=== PATIENT | female | born 1985 | race Two or more races ===

== ENCOUNTER 2016-06-18 17:33 | Emergency (ER) | payer OTHER ==
[2016-06-18 18:03] LABS: PH,URINE 8.5 (4.5-8); URINE APPEARANCE Clear; URINE BILIRUBIN Negative (NEGATIVE); URINE BLOOD Negative (NEGATIVE); URINE COLOR YELLOW; URINE GLUCOSE (UA) Negative (NEGATIVE); URINE KETONE Trace (NEGATIVE); URINE LEUK ESTERASE Negative (NEGATIVE); URINE NITRITE Negative (NEGATIVE); URINE PROTEIN Negative (NEGATIVE); URINE UROBILINOGEN 0.2 E.U/dl (0.2-1.0)
[2016-06-18 18:08] VITALS: BP 109/65; PULSE 89; TEMP 98.7; BMI 47.5
--- NOTE | 2016-06-18 18:42 | PDOC ---
History of Present Illness - General History Source: Patient Exam Limitations: No Limitations - History of Present Illness Initial Comments: 06/18/16 18:46 The patient is a 31 year old female, with a significant past medical history of asthma, GERD and anxiety, who presents to the emergency department with abdominal pain. She describes her abdominal pain as ranging from mild to moderate, without radiation or modifying factors. She notes that the pain is localized in the suprapubic region where her is localized. She reports that she is currently attempting to get , with her last menstrual period being 2 weeks ago. The patient denies chest pain, shortness of breath, headache and dizziness. Denies fever, chills, nausea, vomit, diarrhea and constipation. Denies dysuria, frequency, urgency and hematuria. Allergies: Sulfa, morphine Past surgical history: (2009) Social history: Cigarette use (20 daily). No alcohol or drug use reported <James Lund - Last Filed: 06/18/16 18:46> <Amador Harrell - Last Filed: 06/19/16 11:18> - General Chief Complaint: Pain, Acute Stated Complaint: PELVIC PAIN Time Seen by Provider: 06/18/16 18:42 Past History <James Lund - Last Filed: 06/18/16 18:46> - Past Medical History Asthma: Yes GI Disorders: Yes (GERD) Psychiatric Problems: Yes (anxiety) Other medical history: pcos - Reproductive History Polycystic Ovaries: Yes (PERIOD USUALLY ONCE A YEAR) - Immunization History Immunization Up to Date: Yes - Psycho/Social/Smoking Cessation Hx Anxiety: No Suicidal Ideation: No Smoking Status: Yes Smoking History: Current every day smoker Have you smoked in the past 12 months: Yes Number of Cigarettes Smoked Daily: 8 Information on smoking cessation initiated: Yes 'Breaking Loose' booklet given: 06/18/16 Hx Alcohol Use: No Drug/Substance Use Hx: No Substance Use Type: None <Amador Harrell - Last Filed: 06/19/16 11:18> - Past Medical History Allergies/Adverse Reactions: Allergies Allergy/AdvReac Type Severity Reaction Status Date / Time Sulfa (Sulfonamide Allergy UNKNOWN Verified 06/18/16 17:34 Antibiotics) morphine AdvReac Verified 06/18/16 17:34 Home Medications: Ambulatory Orders NK [No Known Home Medication] 10/07/15 Review of Systems - Review of Systems Able to Perform ROS?: Yes Comments:: 06/18/16 18:46 GENERAL/CONSTITUTIONAL: No fever or chills. No weakness. HEAD, EYES, EARS, NOSE AND THROAT: No change in vision. No ear pain or discharge. No sore throat. CARDIOVASCULAR: No chest pain or shortness of breath RESPIRATORY: No cough, wheezing, or hemoptysis. GASTROINTESTINAL: +Abdominal pain. No nausea, vomiting, diarrhea or constipation. GENITOURINARY: No dysuria, frequency, or change in urination. MUSCULOSKELETAL: No joint or muscle swelling or pain. No neck or back pain. SKIN: No rash NEUROLOGIC: No headache, vertigo, loss of consciousness, or change in strength/ sensation. ENDOCRINE: No increased thirst. No abnormal weight change HEMATOLOGIC/LYMPHATIC: No anemia, easy bleeding, or history of blood clots. ALLERGIC/IMMUNOLOGIC: No hives or skin allergy. <James Lund - Last Filed: 06/18/16 18:46> *Physical Exam - Vital Signs Last Vital Signs Temp Pulse Resp BP Pulse Ox 98.7 F 89 18 109/65 100 06/18/16 17:34 06/18/16 17:34 06/18/16 17:34 06/18/16 17:34 06/18/16 17:34 - Physical Exam Comments: 06/18/16 18:47 GENERAL: Awake, alert, and fully oriented, in no acute distress HEAD: No signs of trauma, normocephalic, atraumatic EYES: PERRLA, EOMI, sclera anicteric, conjunctiva clear ENT: Auricles normal inspection, hearing grossly normal, nares patent, oropharynx clear without exudates. Moist mucosa NECK: Normal ROM, supple, no lymphadenopathy, JVD, or masses LUNGS: No distress, speaks full sentences, clear to auscultation bilaterally HEART: Regular rate and rhythm, normal S1 and S2, no murmurs, rubs or gallops, peripheral pulses normal and equal bilaterally. ABDOMEN: +Diffused suprapubic tenderness. Soft, normoactive bowel sounds. No guarding, no rebound. No masses EXTREMITIES: Normal inspection, Normal range of motion, no edema. No clubbing or cyanosis. NEUROLOGICAL: Cranial nerves II through XII grossly intact. Normal speech, normal gait, no focal sensorimotor deficits SKIN: Warm, Dry, normal turgor, no rashes or lesions noted. PELVIC EXAM: +Bilateral adnexal tenderness and cervical tenderness. No vaginal discharge or blood in vault. <James Lund - Last Filed: 06/18/16 18:46> - Vital Signs Last Vital Signs Temp Pulse Resp BP Pulse Ox 98.7 F 89 18 109/65 100 06/18/16 17:34 06/18/16 17:34 06/18/16 17:34 06/18/16 17:34 06/18/16 17:34 <Amador Harrell - Last Filed: 06/19/16 11:18> ED Treatment Course - ADDITIONAL ORDERS Additional order review: Laboratory Results 06/18/16 17:45 Urine Color Yellow Urine Appearance Clear Urine pH 8.5 H Ur Specific [place] 1.020 Urine Protein Negative Urine Glucose (UA) Negative Urine Ketones Trace Urine Blood Negative Urine Nitrite Negative Urine Bilirubin Negative Urine Urobilinogen 0.2 e.u/dl Ur Leukocyte Esterase Negative Urine HCG, Qual Negative <James Lund - Last Filed: 06/18/16 18:46> - LABORATORY CBC & Chemistry Diagram: 06/18/16 19:10 06/18/16 19:10 - ADDITIONAL ORDERS Additional order review: Laboratory Results 06/18/16 17:45 Urine Color Yellow Urine Appearance Clear Urine pH 8.5 H Ur Specific [place] 1.020 Urine Protein Negative Urine Glucose (UA) Negative Urine Ketones Trace Urine Blood Negative Urine Nitrite Negative Urine Bilirubin Negative Urine Urobilinogen 0.2 e.u/dl Ur Leukocyte Esterase Negative Urine HCG, Qual Negative <Amador Harrell - Last Filed: 06/19/16 11:18> *DC/Admit/Observation/Transfer - Attestations Scribe Attestion: 06/18/16 18:47 Documentation prepared by James Lund, acting as certified ophthalmic medical technician for Amador Harrell MD <James Lund - Last Filed: 06/18/16 18:46> - Discharge Dispostion Admit: No <Amador Harrell - Last Filed: 06/19/16 11:18> Diagnosis at time of Disposition: Pelvic pain - Discharge Dispostion Disposition: HOME Condition at time of disposition: Stable - Referrals Referrals: Mateus Ortega [Primary Care Provider] - Call tomorrow - Patient Instructions Additional Instructions: PLENTY OF FLUIDS TELL YOUR DOCTOR ABOUT ALL MEDICATIONS YOU ARE TAKING RETURN IF WORSENING OR NEW SYMPTOMS IBUPROFEN FOR PAIN
[2016-06-18 19:23] LABS: BASOPHIL 0.1 % (0-2.0); EOSINOPHIL 3.7 % (0-4.5); MCH 28.6 pg (25.7-33.7); MCHC 32.4 g/dl (32.0-36.0); MEAN CELL VOLUME 88.1 fl (80-96); MEAN PLT VOLUME 9.2 fl (7.5-11.1); NEUTROPHILS 56.3 % (42.8-82.8); PLATELET COUNT 300 K/MM3 (134-434); RDW 12.2 % (11.6-15.6)
[2016-06-18 19:36] LABS: ALBUMIN 3.7 g/dl (3.5-5.0); ALK PHOS 63 U/L (32-92); ANION GAP 9 (8-16); CALCIUM 9.2 mg/dl (8.4-10.2); CO2 28 mmol/L (22-28); CREATININE 0.7 mg/dl (0.6-1.3); GLUCOSE,RANDOM 93 mg/dl (74-106); SGOT/AST 18 U/L (10-42); SGPT/ALT 32 U/L (10-40); TOT PROT 6.6 g/dl (6.4-8.3)
--- NOTE | 2016-06-18 19:50 | PDOC ---
*Physical Exam - Vital Signs Last Vital Signs Temp Pulse Resp BP Pulse Ox 98.7 F 89 18 109/65 100 06/18/16 17:34 06/18/16 17:34 06/18/16 17:34 06/18/16 17:34 06/18/16 17:34 ED Treatment Course - LABORATORY CBC & Chemistry Diagram: 06/18/16 19:10 06/18/16 19:10 - ADDITIONAL ORDERS Additional order review: Laboratory Results 06/18/16 06/18/16 19:10 17:45 Sodium 142 Potassium 3.6 Chloride 105 Carbon Dioxide 28 Anion Gap 9 BUN 12 Creatinine 0.7 Creat Clearance w eGFR > 60 Random Glucose 93 Calcium 9.2 AST 18 ALT 32 Alkaline Phosphatase 63 Total Protein 6.6 Albumin 3.7 Urine Color Yellow Urine Appearance Clear Urine pH 8.5 H Ur Specific [place] 1.020 Urine Protein Negative Urine Glucose (UA) Negative Urine Ketones Trace Urine Blood Negative Urine Nitrite Negative Urine Bilirubin Negative Urine Urobilinogen 0.2 e.u/dl Ur Leukocyte Esterase Negative Urine HCG, Qual Negative 06/18/16 19:10 RBC 5.01 MCV 88.1 MCHC 32.4 RDW 12.2 MPV 9.2 Neutrophils % 56.3 Lymphocytes % 25.3 Monocytes % 14.6 H Eosinophils % 3.7 Basophils % 0.1 Progress Note - Progress Note Progress Note: PT TAKING CLOMID (ON HER OWN) WHICH SHE GOT ONLINE NORMAL US WILL TREAT PER EVALUATING MD INITIAL PLAN FOR STD *DC/Admit/Observation/Transfer Diagnosis at time of Disposition: Pain in pelvis - Discharge Dispostion Disposition: HOME Condition at time of disposition: Stable - Referrals Referrals: Mateus Ortega [Primary Care Provider] - Call tomorrow - Patient Instructions Additional Instructions: PLENTY OF FLUIDS TELL YOUR DOCTOR ABOUT ALL MEDICATIONS YOU ARE TAKING RETURN IF WORSENING OR NEW SYMPTOMS IBUPROFEN FOR PAIN - Post Discharge Activity
[2016-06-18 19:53] LABS: BILIRUBIN,TOTAL < 0.2 mg/dl (0.2-1.0)
== END 2016-06-18 21:22 | disposition home or self-care (01) ==
LOC: FER 17:33
DX: R10.2 Pelvic and perineal pain (principal); J45.909 Unspecified asthma, uncomplicated; K21.9 Gastro-esophageal reflux disease without esophagitis; F41.9 Anxiety disorder, unspecified; E28.2 Polycystic ovarian syndrome; F17.210 Nicotine dependence, cigarettes, uncomplicated
CPT/HCPCS: 36415; 76830-TC; 80053; 81003; 84703; 85025; 85651; 87491; 87591; 99281-25

== ENCOUNTER 2016-08-23 10:35 | Emergency (ER) | payer OTHER ==
[2016-08-23 10:47] VITALS: BP 92/68; PULSE 78; TEMP 98.3; BMI 46.0
--- NOTE | 2016-08-23 12:10 | PDOC ---
History of Present Illness - General Chief Complaint: Respiratory Stated Complaint: COLD SYMPTOMS Time Seen by Provider: 08/23/16 11:22 - History of Present Illness Initial Comments: 08/23/16 12:05 CHIEF COMPLAINT: cough HISTORY OF PRESENT ILLNESS: 31 yo F with hx of asthma presents to [facility] with productive cough x 3 days. Patient states that "everyone at home is sick now" after her son began coughing with a fever 3 days ago. She complains of sore throat but denies any congestion. She denies any fever, nausea, vomiting, diarrhea. PAST MEDICAL HISTORY: as per HPI FAMILY HISTORY: Denies SOCIAL HISTORY: Current smoker, 9 cigarettes daily. Denies alcohol, illicit drug use. SURGICAL HISTORY: Denies ALLERGIES: Sulfa, morphinr REVIEW OF SYSTEMS General/Constitutional: Denies fever or chills. Denies weakness, weight change. HEENT: Denies change in vision. Denies ear pain or discharge. Denies sore throat. Cardiovascular: Denies chest pain or shortness of breath. Respiratory: Cough x 3 days. Denies wheezing, or hemoptysis. Gastrointestinal: Denies nausea, vomiting, diarrhea or constipation. Genitourinary: Denies dysuria, frequency, or change in urination. Musculoskeletal: Denies joint or muscle swelling or pain. Denies neck or back pain. Skin and breasts: Denies rash or easy bruising. PHYSICAL EXAM General Appearance: Well-appearing, appropriately dressed. No apparent distress , no intoxication. HEENT: EOMI, PERRLA, normal ENT inspection, normal voice, TMs normal, pharynx normal. No conjunctival pallor. No photophobia, scleral icterus. Respiratory/Chest: Lungs CTAB. Cardiovascular: RRR. S1, S2. No JVD, murmur, bradycardia, tachycardia. Integumentary: Appropriate color, dry, warm. No cyanosis, erythema, jaundice or rash Neurologic: surgical services tech II-XII intact. Fully oriented, alert. Appropriate mood/affect. Motor strength 5/5. No appreciable EOM palsy, facial droop or sensory deficit. Past History - Past Medical History Allergies/Adverse Reactions: Allergies Allergy/AdvReac Type Severity Reaction Status Date / Time Sulfa (Sulfonamide Allergy UNKNOWN Verified 08/23/16 10:47 Antibiotics) morphine AdvReac Verified 08/23/16 10:47 Home Medications: Ambulatory Orders Dextromethorphan HBr [Robitussin] 15 mg PO QID PRN #32 capsule 08/23/16 Asthma: Yes GI Disorders: Yes (GERD) Psychiatric Problems: Yes (anxiety) - Reproductive History Polycystic Ovaries: Yes (PERIOD USUALLY ONCE A YEAR) - Immunization History Immunization Up to Date: Yes - Psycho/Social/Smoking Cessation Hx Anxiety: No Suicidal Ideation: No Smoking Status: Yes Smoking History: Current every day smoker Have you smoked in the past 12 months: Yes Number of Cigarettes Smoked Daily: 9 Information on smoking cessation initiated: No 'Breaking Loose' booklet given: 06/18/16 Hx Alcohol Use: No Drug/Substance Use Hx: No Substance Use Type: None *Physical Exam - Vital Signs Last Vital Signs Temp Pulse Resp BP Pulse Ox 98.3 F 78 18 92/68 97 08/23/16 10:44 08/23/16 10:44 08/23/16 10:44 08/23/16 10:44 08/23/16 10:44 Medical Decision Making - Medical Decision Making 08/23/16 12:07 31 yo F with hx of asthma presents to [facility] with cough x 3 days. Exam unremarkable. -Influenza rapid swab Advised patient to take medication as prescribed and follow up with PMD if symptoms persist past 3-5 days. Advised patient of signs and symptoms for return to ED. Patient verbalized understanding and agrees to plan. *DC/Admit/Observation/Transfer Diagnosis at time of Disposition: Bronchitis - Discharge Dispostion Disposition: HOME Condition at time of disposition: Stable Admit: No - Prescriptions Prescriptions: Dextromethorphan HBr [Robitussin] 15 mg PO QID PRN #32 capsule PRN Reason: Cough - Referrals Referrals: Mateus Ortega [Primary Care Provider] - - Patient Instructions Printed Discharge Instructions: DI for Acute Bronchitis Additional Instructions: Please take medication as prescribed and follow up with your primary care doctor if symptoms persist past 3-5 days. If you experience any fever unrelieved by Tylenol or Motrin, nausea, vomiting, diarrhea, shortness of breath , chest pain, palpitations, or any new or worsening symptoms, please return to the ER.
== END 2016-08-23 13:00 | disposition home or self-care (01) ==
LOC: JERFT 10:35
DX: J40 Bronchitis, not specified as acute or chronic (principal); K21.9 Gastro-esophageal reflux disease without esophagitis; F41.9 Anxiety disorder, unspecified
CPT/HCPCS: 87804; 99281-25

== ENCOUNTER 2016-12-31 10:49 | Emergency (ER) | payer OTHER ==
[2016-12-31 11:26] VITALS: BMI 47.5
[2016-12-31 12:50] LABS: URINE APPEARANCE CLEAR; URINE BILIRUBIN NEGATIVE (NEGATIVE); URINE BLOOD NEGATIVE (NEGATIVE); URINE COLOR YELLOW; URINE GLUCOSE (UA) NEGATIVE (NEGATIVE); URINE KETONE NEGATIVE (NEGATIVE); URINE LEUK ESTERASE NEGATIVE (NEGATIVE); URINE NITRITE NEGATIVE (NEGATIVE); URINE PROTEIN NEGATIVE (NEGATIVE); URINE UROBILINOGEN NEGATIVE mg/dL (0.2-1.0)
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
[2016-12-31] MEDS ORDERED: KETOROLAC TROMETHAMINE 60 MG/2 ML VIAL IM ONE (13:08)
[2016-12-31] MEDS ORDERED: KETOROLAC TROMETHAMINE 60 MG/2 ML VIAL ONE (13:13)
[2016-12-31 17:09] VITALS: BP 106/69; PULSE 68; TEMP 98.5
== END 2016-12-31 16:46 | disposition home or self-care (01) ==
LOC: JER 10:49
PROC: 3E0233Z Introduction of Anti-inflammatory into Muscle, Percutaneous Approach (ICD-10-PCS; principal; 2016-12-31)
DX: G44.209 Tension-type headache, unspecified, not intractable (principal); E28.2 Polycystic ovarian syndrome; K21.9 Gastro-esophageal reflux disease without esophagitis
CPT/HCPCS: 76830-TC; 76856-TC; 81003; 84703; 99282-25

== ENCOUNTER 2017-02-19 11:33 | Emergency (ER) | payer OTHER ==
[2017-02-19] MEDS ORDERED: LIDO 2%/EPI 1:200000 PRESRVFRE (20 ML SDVIAL) ONE (12:00)
[2017-02-19 12:05] VITALS: BP 120/82; PULSE 80; TEMP 98.5; BMI 47.3
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
[2017-02-19] MEDS ORDERED: TETANUS AND DIPHTHERIA TOXOID 0.5 ML DISP.SYRIN IM ONE (12:37)
[2017-02-19] MEDS ORDERED: DIPHTH,PERTUSS(ACELL),TET 0.5 ML DISP.SYRIN IM ONE (12:58)
== END 2017-02-19 13:08 | disposition home or self-care (01) ==
LOC: FER 11:33
PROC: 3E0234Z Introduction of Serum, Toxoid and Vaccine into Muscle, Percutaneous Approach (ICD-10-PCS; principal; 2017-02-19)
PROC: 0HQ1XZZ Repair Face Skin, External Approach (ICD-10-PCS; 2017-02-19)
DX: S01.81XA Laceration without foreign body of other part of head, initial encounter (principal); Y04.2XXA Assault by strike against or bumped into by another person, initial encounter; Y07.03 Male partner, perpetrator of maltreatment and neglect; Y92.9 Unspecified place or not applicable; Y93.89 Activity, other specified; K21.9 Gastro-esophageal reflux disease without esophagitis; F17.210 Nicotine dependence, cigarettes, uncomplicated; J45.909 Unspecified asthma, uncomplicated
CPT/HCPCS: 12011-25; 90471; 90715; 99282-25

== ENCOUNTER 2017-05-13 03:01 | Emergency (ER) | payer OTHER ==
[2017-05-13] MEDS ORDERED: ALBUTEROL SO4 2.5/IPRATROPIUM 0.5 INH SOL 3 ML VIAL.NEB. NEB ONE (03:03)
--- NOTE | 2017-05-13 03:03 | PDOC ---
History of Present Illness - General Chief Complaint: Cold Symptoms Stated Complaint: COUGH Time Seen by Provider: 05/13/17 03:02 - History of Present Illness Initial Comments: This 32-year-old woman with a history of asthma and GERD presents with a 2 day history of nonproductive cough and mild sore throat. No history of measured fever although she states she has had subjective fever and chills. Patient states that her 7-year-old son was diagnosed with upper respiratory viral syndrome several days ago. Patient used her son's nebulizer(albuterol) at approximately 11 PM but continued to have nonproductive cough and mild shortness of breath. Patient's asthma began at age 8; she has had wheezing/ shortness of breath only with respiratory infections for the last several years. She was last hospitalized for her asthma at age 19 and has not been intubated. She has not been prescribed prednisone for "many years". Patient admits to 20 year history of cigarette smoking; she currently smokes half pack of cigarettes per day Past History - Past Medical History Allergies/Adverse Reactions: Allergies Allergy/AdvReac Type Severity Reaction Status Date / Time Sulfa (Sulfonamide Allergy UNKNOWN Verified 05/13/17 03:02 Antibiotics) morphine AdvReac Intermediate Verified 05/13/17 03:02 Home Medications: Ambulatory Orders Omeprazole 40 mg PO DAILY 12/31/16 Albuterol Sulfate 0.5% [Ventolin 0.5% Nebulizing Soln. -] 1 amp NEB QID PRN #30 amp 05/13/17 Albuterol Sulfate Inhaler - [Ventolin HFA Inhaler -] 1 puff IH Q4H #1 inhaler Azithromycin 250 mg PO DAILY #4 tablet 05/13/17 Asthma: Yes GI Disorders: Yes (GERD) Psychiatric Problems: Yes (anxiety) - Reproductive History Polycystic Ovaries: Yes - Immunization History Immunization Up to Date: No - Suicide/Smoking/Psychosocial Hx Smoking Status: Yes Smoking History: Current every day smoker Have you smoked in the past 12 months: Yes Number of Cigarettes Smoked Daily: 10 'Breaking Loose' booklet given: 06/18/16 Hx Alcohol Use: No Drug/Substance Use Hx: Yes Substance Use Type: Marijuana Review of Systems - Review of Systems Able to Perform ROS?: Yes Comments:: 12 point review of systems is negative except for what is noted in the history of present illness *Physical Exam - Physical Exam Comments: GENERAL: Adult female, coughing frequently but speaking in full sentences; no audible wheezing; vital signs as noted with pulse ox 99% on room air HEAD: Normal with no signs of trauma. EYES: PERRLA, EOMI, sclera anicteric, conjunctiva clear. ENT: nares patent, oropharynx clear without exudates. Dry mucous membranes. NECK: Normal range of motion, supple without lymphadenopathy, JVD, or masses. LUNGS: Breath sounds equal, clear to auscultation bilaterally, fair air exchange no wheezes, and no crackles. HEART:Regular rate and rhythm, normal S1 and S2 without murmur, rub or gallop EXTREMITIES: Normal range of motion, no edema. No clubbing or cyanosis. No erythema, or tenderness. NEUROLOGICAL: Cranial nerves II through XII grossly intact. Normal speech. No focal neurological deficits. MUSCULOSKELETAL: Back non-tender to palpation, no CVA tenderness SKIN: Warm, Dry, normal turgor, no rashes or lesions noted. Progress Note - Progress Note Progress Note: This 32-year-old woman presents with a history of asthma and 2 day history of upper respiratory infection. The patient currently does not have an albuterol inhaler or nebulizer ampules of albuterol. She has been using her son's nebulizer and albuterol during her current episode of respiratory illness. Vital signs revealed no evidence of fever and pulse oximetry is 99% on room air. Lung exam shows fair air exchange and no wheezing or other abnormal sounds. DuoNeb treatment given for her persistent cough and fair air exchange. After treatment, lung exam shows improvement in air exchange. Patient feels subjectively better. Patient will be started on azithromycin 5 day treatment with first dose of 500 mg of azithromycin given now. She will also be prescribed albuterol inhaler and nebulizer ampules of albuterol to be used as needed. Since patient has not had wheezing at home and none was found on exam here along with good pulse oximetry on presentation, in light of her history of GERD no prednisone will be prescribed at this time. Patient has scheduled appointment with her primary care physician later this week. She should return to the ER in the interim if she develops persistent wheezing, high fever or shortness of breath *DC/Admit/Observation/Transfer Diagnosis at time of Disposition: Asthmatic bronchitis Qualifiers: Asthma severity: moderate Asthma persistence: persistent Asthma complication type: uncomplicated Qualified Code(s): J45.40 - Moderate persistent asthma, uncomplicated - Discharge Dispostion Disposition: HOME Condition at time of disposition: Stable - Prescriptions Prescriptions: Albuterol Sulfate 0.5% [Ventolin 0.5% Nebulizing Soln. -] 1 amp NEB QID PRN #30 amp PRN Reason: Wheezing Albuterol Sulfate Inhaler - [Ventolin HFA Inhaler -] 1 puff IH Q4H #1 inhaler Azithromycin 250 mg PO DAILY #4 tablet - Referrals - Patient Instructions Printed Discharge Instructions: DI for Acute Bronchitis Additional Instructions: Azithromycin 250 mg daily for the next 4 days Albuterol inhaler 1 puff up to 4 times a day as needed Albuterol nebulizer treatment as needed Avoid smoking; drink plenty of water Use a vaporizer/humidifier, especially in room at night Return to ER if you have persistent wheezing or develop shortness of breath/ high fever Follow-up with your doctor within the next week - Post Discharge Activity
[2017-05-13 03:18] VITALS: BP 100/54; PULSE 102; TEMP 98.4; BMI 46.9
[2017-05-13] MEDS ORDERED: AZITHROMYCIN 500 MG TABLET PO ONE (03:26)
[2017-05-13] MEDS ORDERED: AZITHROMYCIN 500 MG TABLET ONE (03:33)
== END 2017-05-13 03:42 | disposition home or self-care (01) ==
LOC: FER 03:01
PROC: 3E0F7GC Introduction of Other Therapeutic Substance into Respiratory Tract, Via Natural or Artificial Opening (ICD-10-PCS; principal; 2017-05-13)
DX: J45.40 Moderate persistent asthma, uncomplicated (principal)
CPT/HCPCS: 99281-25

== ENCOUNTER 2017-10-22 13:10 | Emergency (ER) | payer OTHER ==
[2017-10-22 13:16] VITALS: BP 110/70; PULSE 88; TEMP 99.6; BMI 49.4
[2017-10-22] MEDS ORDERED: ALBUTEROL SO4 2.5/IPRATROPIUM 0.5 INH SOL 3 ML VIAL.NEB. NEB ONE ×2 (14:06→14:15)
--- NOTE | 2017-10-22 14:15 | PDOC ---
History of Present Illness - General Chief Complaint: Respiratory Stated Complaint: COUGH, SORE THROAT Time Seen by Provider: 10/22/17 14:02 - History of Present Illness Initial Comments: 10/22/17 14:29 32 years old past medical history significant for asthma active tobacco presents to the emergency department with asthma exacerbation. Patient has had runny nose cough sore throat for the last several days now complaining of wheezing and some shortness of breath. Pain has some substernal ache only when she coughs no chest pain at rest No fevers or chills feels a little bit nauseous as well complaining also of mild headache persistent constant usually worse when she is coughing No PE DVT risk factors is on a control no long travel. Past History - Past Medical History Allergies/Adverse Reactions: Allergies Allergy/AdvReac Type Severity Reaction Status Date / Time Sulfa (Sulfonamide Allergy UNKNOWN Verified 10/22/17 13:11 Antibiotics) morphine AdvReac Intermediate Verified 10/22/17 13:11 Home Medications: Ambulatory Orders Omeprazole 40 mg PO DAILY 12/31/16 Albuterol Sulfate 0.5% [Ventolin 0.5% Nebulizing Soln. -] 1 amp NEB QID PRN #30 amp 05/13/17 Albuterol Sulfate Inhaler - [Ventolin HFA Inhaler -] 1 puff IH Q4H #1 inhaler Albuterol 0.083% Nebulizer Chanell [Ventolin 0.083% Nebulizer Soln -] 1 neb NEB Q6H #30 vial 10/22/17 Azithromycin 500 mg PO DAILY #1 tablet 10/22/17 Azithromycin [Zithromax 250mg Tablets -] 250 mg PO DAILY #4 tab 10/22/17 Asthma: Yes COPD: No GI Disorders: Yes (GERD) Psychiatric Problems: Yes (anxiety) - Reproductive History Polycystic Ovaries: Yes - Immunization History Immunization Up to Date: No - Suicide/Smoking/Psychosocial Hx Smoking Status: Yes Smoking History: Current every day smoker Have you smoked in the past 12 months: Yes Number of Cigarettes Smoked Daily: 10 Information on smoking cessation initiated: Yes 'Breaking Loose' booklet given: 10/22/17 Hx Alcohol Use: No Drug/Substance Use Hx: Yes Substance Use Type: Marijuana *Physical Exam - Vital Signs Last Vital Signs Temp Pulse Resp BP Pulse Ox 99.6 F 88 18 110/70 96 10/22/17 13:10 10/22/17 13:10 10/22/17 13:10 10/22/17 13:10 10/22/17 13:10 Medical Decision Making - Medical Decision Making 10/22/17 15:53 History and examination consistent with wheezy bronchitis. Status post nebulizer treatments patient feels better her wheezing has improved. Given that patient is a half a pack a day smoker 20 years we'll treat with Z-Xavier and nebulizer treatments. Patient counseled at length regarding smoking cessation Findings, the need for follow-up and strict return instructions discussed patient *DC/Admit/Observation/Transfer Diagnosis at time of Disposition: Bronchitis - Discharge Dispostion Condition at time of disposition: Stable Decision to Admit order: No - Prescriptions Prescriptions: Albuterol 0.083% Nebulizer Chanell [Ventolin 0.083% Nebulizer Soln -] 1 neb NEB Q6H #30 vial Azithromycin [Zithromax 250mg Tablets -] 250 mg PO DAILY #4 tab Azithromycin 500 mg PO DAILY #1 tablet - Referrals Referrals: [facility] [place] [Provider Group] - Patient Instructions Printed Discharge Instructions: DI for Acute Bronchitis Additional Instructions: Albuterol as prescribed. Azithromycin as prescribed. Please try to stop smoking. Follow with your doctor in 1-2 days. Return to ED for any severe worsening symptoms or for any concerns. - Post Discharge Activity
[2017-10-22] MEDS ORDERED: ACETAMINOPHEN 650 MG/20.3 ML ORAL SOLUTION (CUPS) PO ONE (14:16)
[2017-10-22] MEDS ORDERED: ACETAMINOPHEN 650 MG/20.3 ML ORAL SOLUTION (CUPS) ONE (14:17)
== END 2017-10-22 16:05 | disposition home or self-care (01) ==
LOC: FER 13:10
PROC: 3E0F7GC Introduction of Other Therapeutic Substance into Respiratory Tract, Via Natural or Artificial Opening (ICD-10-PCS; principal; 2017-10-22)
DX: J40 Bronchitis, not specified as acute or chronic (principal)
CPT/HCPCS: 71046-TC-FY; 84703; 99283-25; J7620

== ENCOUNTER 2018-01-04 18:58 | Emergency (ER) | payer OTHER ==
--- NOTE | 2018-01-04 19:13 | PDOC ---
History of Present Illness - General History Source: Patient Exam Limitations: No Limitations - History of Present Illness Initial Comments: 01/04/18 19:57 The patient is a 32 year old female, with a significant past medical history of PCOS, asthma, GERD and anxiety, who presents to the emergency department with, 1 day of right upper quadrant abdominal pain, nausea, diarrhea, and decreased appetite. As per patient the pain has been intermittent for a month but, for the past 24 hours it has become a constant, sharp pain. Her pain worsened after eating fast food. She describes her diarrhea as bright yellow improved after Imodium. She denies recent fevers, chills, headache or dizziness. She denies recent vomit or constipation. She denies recent dysuria, frequency, urgency or hematuria. She denies recent chest pain or shortness of breath. PAST MEDICAL HISTORY: PCOS, asthma, GERD and anxiety PAST SURGICAL HISTORY: (2009) FAMILY HISTORY: Maternal gallstones and kidney stones. SOCIAL HISTORY: Pt lives with family and is employed. MEDICATIONS: reviewed ALLERGIES: As per nursing notes ROS: General: No fevers or chills, no weakness, no weight loss HEENT: No change in vision. No sore throat,. No ear pain CardioVascular: No chest pain or shortness of breath Respiratory:No cough, or wheezing. Gastrointestinal: Nausea. Diarrhea. Right upper quadrant abdominal pain. Vomiting or constipation, No rectal bleeding Genitourinary: No dysuria, hematuria, or frequency Musculoskeletal: No joint or muscle pain or swelling Neurologic: No headache, vertigo, dizziness or loss of consciousness Psychiatric: nor depression Skin: No rashes or easy bruising Endocrine: no increased thirst or abnormal weight change Allergic: no skin or latex allergy All other systems reviewed and normal Physical Exam: +General: Morbidly obese. Well-nourished well-developed individual, no acute distress HEENT: Throat: Normal, tonsils normal, no erythema or exudate Neck: Supple, no meningeal signs, no lymphadenopathy Eyes::Pupils equal reactive and round, extraocular motion intact Chest: Nontender to palpation Cardiac: S1-S2 normal, regular rate and rhythm, no murmurs rubs or gallops Respiratory: Lungs clear to auscultation bilateral +Abdomen: Right upper quadrant pain with deep palpation with mild guarding. Positive [place] Sign. Soft, nondistended, normal bowel sounds. No rebound. Extremities: Warm, dry, no cyanosis, clubbing, or edema Skin: No rashes Neuro: Alert and oriented x3, nonfocal exam, grossly intact, normal gait Psych: Normal mood and affect <Gage Rich - Last Filed: 01/04/18 19:57> - General History Source: Patient Exam Limitations: No Limitations - History of Present Illness Initial Comments: A portion of this note was documented by scribe services under my direction. I have reviewed the details of the note, within reason, and agree with the documentation. The case summary and management plan written by me. 01/04/18 20:28 Assessment plan: This is a 32-year-old female who is morbidly obese and comes in with 1 day of persistent right upper quadrant pain. Patient has a strong family of renal colic as well as biliary colic. Patient symptoms are most likely gallbladder in origin. Patient workup initiated including ultrasound of the gallbladder, CBC, comp, lipase. Patient given IV fluids and pain medication. We'll reassess and reevaluate and follow-up on the workup that was initiated 01/04/18 21:45 Gallbladder ultrasound negative for stones or any acute pathology Patient's workup was otherwise normal with a normal white count normal lipase and normal chemistries. Patient was given some Pepcid and said that the Toradol also did help with the pain. Patient discharged home told to follow-up with her primary care doctor if symptoms persist 01/04/18 21:47 Patient mentioned just prior to discharge that she frequently wakes up in the morning with a headache. Patient said this is been ongoing for a number of months and has never really given it much thought or followed up I did recommend that she follow it up with somebody to rule out any intracranial causes such as normal pressure hydrocephalus. <Wes Lambert I - Last Filed: 01/04/18 21:48> - General Chief Complaint: Pain, Acute Stated Complaint: ABD PAIN Time Seen by Provider: 01/04/18 19:13 Past History <Gage Rich - Last Filed: 01/04/18 19:57> - Past Medical History Asthma: Yes COPD: No GI Disorders: Yes (GERD) Psychiatric Problems: Yes (anxiety) Other medical history: MORBIDLY OBESE - Reproductive History Polycystic Ovaries: Yes - Immunization History Immunization Up to Date: No - Suicide/Smoking/Psychosocial Hx Smoking Status: Yes Smoking History: Current every day smoker Have you smoked in the past 12 months: Yes Number of Cigarettes Smoked Daily: 10 Information on smoking cessation initiated: Yes 'Breaking Loose' booklet given: 10/22/17 Hx Alcohol Use: No Drug/Substance Use Hx: Yes Substance Use Type: Marijuana <Wes Lambert I - Last Filed: 01/04/18 21:48> - Past Medical History Allergies/Adverse Reactions: Allergies Allergy/AdvReac Type Severity Reaction Status Date / Time Sulfa (Sulfonamide Allergy UNKNOWN Verified 10/22/17 13:11 Antibiotics) morphine AdvReac Intermediate Verified 10/22/17 13:11 Home Medications: Ambulatory Orders Omeprazole 40 mg PO DAILY 12/31/16 Ondansetron [Zofran Odt -] 4 mg SL TID PRN #21 od.tablet 01/04/18 *Physical Exam - Vital Signs Last Vital Signs Temp Pulse Resp BP Pulse Ox 98.6 F 90 16 129/84 97 01/04/18 19:05 01/04/18 19:05 01/04/18 19:05 01/04/18 19:05 01/04/18 19:05 <Gage Rich - Last Filed: 01/04/18 19:57> - Vital Signs Last Vital Signs Temp Pulse Resp BP Pulse Ox 98.6 F 90 16 129/84 97 01/04/18 19:05 01/04/18 19:05 01/04/18 19:05 01/04/18 19:05 01/04/18 19:05 <Wes Lambert I - Last Filed: 01/04/18 21:48> ED Treatment Course - LABORATORY CBC & Chemistry Diagram: 01/04/18 19:00 01/04/18 19:00 - ADDITIONAL ORDERS Additional order review: Laboratory Results 01/04/18 01/04/18 19:04 19:00 Sodium 138 Potassium 3.8 Chloride 104 Carbon Dioxide 27 Anion Gap 7 L BUN 14 Creatinine 0.7 Creat Clearance w eGFR > 60 Random Glucose 91 Calcium 8.6 Total Bilirubin 0.6 AST 27 D ALT 39 D Alkaline Phosphatase 71 Total Protein 6.6 Albumin 3.5 Urine Color Yellow Urine Appearance Clear Urine pH 5.0 Ur Specific [place] >= 1.030 H Urine Protein Negative Urine Glucose (UA) Negative Urine Ketones Negative Urine Blood Negative Urine Nitrite Negative Urine Bilirubin Negative Urine Urobilinogen 0.2 Ur Leukocyte Esterase Negative Urine HCG, Qual Negative 01/04/18 19:00 RBC 4.91 MCV 86.4 MCHC 33.4 RDW 12.7 MPV 9.1 Neutrophils % 64.0 Lymphocytes % 25.1 Monocytes % 4.4 Eosinophils % 5.9 H Basophils % 0.6 - Medications Given in the ED: ED Medications Discontinued Medications Generic Name Dose Route Start Last Admin Trade Name Freq PRN Reason Stop Dose Admin Ketorolac Tromethamine 30 mg 01/04/18 19:38 01/04/18 19:51 Toradol Injection - IVPUSH 01/04/18 19:39 30 mg ONCE ONE Administration <Gage Rich - Last Filed: 01/04/18 19:57> - LABORATORY CBC & Chemistry Diagram: 01/04/18 19:00 01/04/18 19:00 <Wes Lambert I - Last Filed: 01/04/18 21:48> *DC/Admit/Observation/Transfer - Attestations Scribe Attestion: 01/04/18 19:58 Documentation prepared by Gage Rich, acting as claim review medical director for Wes Lambert MD. <Gage Rich - Last Filed: 01/04/18 19:57> <Wes Lambert I - Last Filed: 01/04/18 21:48> Diagnosis at time of Disposition: Abdominal pain Qualifiers: Abdominal location: right upper quadrant Qualified Code(s): R10.11 - Right upper quadrant pain - Discharge Dispostion Disposition: HOME Condition at time of disposition: Stable - Prescriptions Prescriptions: Ondansetron [Zofran Odt -] 4 mg SL TID PRN #21 od.tablet PRN Reason: Nausea - Referrals Referrals: Mateus Ortega [Primary Care Provider] - - Patient Instructions Additional Instructions: Your workup was negative for any acute intra-abdominal problems or processes. If you continue to have pain and discomfort is important to follow up with her primary care doctor for further evaluation in addition to that you should also that your doctor know about your headaches and be ruled out for normal pressure hydrocephalus. Return to the emergency department immediately with ANY new, persistent or worsening symptoms. Continue any medications as previously prescribed by your physician. You should follow up with your primary doctor as soon as possible regarding today's emergency department visit. . Please make sure your doctor reviews the results of your emergency evaluation. Thank you for coming to the Emergency Department today for your care. It was a pleasure to see you today. Please note that your evaluation is INCOMPLETE until you follow-up with your doctor. - Post Discharge Activity
[2018-01-04 19:14] VITALS: BP 129/84; PULSE 90; TEMP 98.6; BMI 49.6
[2018-01-04 19:38] LABS: HCG,QUALITATIVE URINE Negative
[2018-01-04] MEDS ORDERED: KETOROLAC TROMETHAMINE 30 MG/1 ML VIAL IVPUSH ONE (19:38)
[2018-01-04] MEDS ORDERED: SODIUM CHLORIDE 1,000 ML IV ONE (19:38)
[2018-01-04 19:40] LABS: URINE APPEARANCE Clear; URINE BILIRUBIN Negative (NEGATIVE); URINE COLOR Yellow; URINE GLUCOSE (UA) Negative (NEGATIVE); URINE KETONE Negative (NEGATIVE); URINE LEUK ESTERASE Negative (NEGATIVE); URINE NITRITE Negative (NEGATIVE); URINE PROTEIN Negative (NEGATIVE); URINE UROBILINOGEN 0.2 (0.2-1.0)
[2018-01-04 19:41] LABS: BASO % 0.6 % (0-2.0); EOS % 5.9 % (0-4.5); HEMATOCRIT 42.4 % (32.4-45.2); HEMOGLOBIN 14.2 GM/dl (10.7-15.3); LYMPH % 25.1 % (8-40); MCH 28.9 pg (25.7-33.7); MCHC 33.4 g/dl (32.0-36.0); MEAN CELL VOLUME 86.4 fl (80-96); MEAN PLT VOLUME 9.1 fl (7.5-11.1); MONO % 4.4 % (3.8-10.2); PLATELET COUNT 309 K/MM3 (134-434); RBC 4.91 M/mm3 (3.60-5.2); RDW 12.7 % (11.6-15.6); WHITE BLOOD COUNT 8.3 K/mm3 (4.0-10.8)
[2018-01-04] MEDS ORDERED: KETOROLAC TROMETHAMINE 30 MG/1 ML VIAL ONE (19:48)
[2018-01-04] MEDS ORDERED: ONDANSETRON 4 MG/2 ML VIAL IVPB ONE (19:53)
[2018-01-04 19:55] LABS: ALBUMIN 3.5 g/dl (3.5-5.0); ALK PHOS 71 U/L (32-92); ANION GAP 7 MMOL/L (8-16); BILIRUBIN,TOTAL 0.6 mg/dl (0.2-1.0); BLOOD UREA NITROGEN 14 mg/dl (7-18); CALCIUM 8.6 mg/dl (8.4-10.2); CHLORIDE 104 mmol/L (98-107); CO2 27 mmol/L (22-28); CREATININE 0.7 mg/dl (0.6-1.3); GLUCOSE,RANDOM 91 mg/dl (74-106); POTASSIUM 3.8 mmol/L (3.5-5.1); SGOT/AST 27 U/L (10-42); SGPT/ALT 39 U/L (10-40); SODIUM 138 mmol/L (136-145); TOT PROT 6.6 g/dl (6.4-8.3)
[2018-01-04] MEDS ORDERED: ONDANSETRON 4 MG/2 ML VIAL ONE (19:57)
[2018-01-04 21:03] LABS: LIPASE 141 U/L (73-393)
[2018-01-04] MEDS ORDERED: FAMOTIDINE 20 MG/50 ML IVPB 20 MG/50 ML MG IVPB ONE ×2 (21:27)
== END 2018-01-04 21:52 | disposition home or self-care (01) ==
LOC: FER 18:58
PROC: 3E033GC Introduction of Other Therapeutic Substance into Peripheral Vein, Percutaneous Approach (ICD-10-PCS; principal; 2018-01-04)
PROC: 3E0333Z Introduction of Anti-inflammatory into Peripheral Vein, Percutaneous Approach (ICD-10-PCS; 2018-01-04)
PROC: 3E0337Z Introduction of Electrolytic and Water Balance Substance into Peripheral Vein, Percutaneous Approach (ICD-10-PCS; 2018-01-04)
DX: R10.11 Right upper quadrant pain (principal)
CPT/HCPCS: 36415; 76705-TC; 80053; 81003; 83690; 84703; 85025; 96361; 96365; 96375; 99283-25; J7030

== ENCOUNTER 2018-08-17 20:20 | Emergency (ER) | payer OTHER ==
[2018-08-17 20:27] VITALS: BP 120/80; PULSE 90; TEMP 98; BMI 49.6
--- NOTE | 2018-08-17 20:49 | PDOC ---
Documentation entered by Bucky Kong SCRIBE, acting as scribe for Wes Lambert MD. Wes Lambert MD: This documentation has been prepared by the Dilan bahena Xhesika, SCRIBE, under my direction and personally reviewed by me in its entirety. I confirm that the documentation accurately reflects all work, treatment, procedures, and medical decision making performed by me. History of Present Illness - General Chief Complaint: Sore Throat Stated Complaint: SORE THROAT Time Seen by Provider: 08/17/18 20:26 History Source: Patient Exam Limitations: No Limitations Past History - Past Medical History Allergies/Adverse Reactions: Allergies Allergy/AdvReac Type Severity Reaction Status Date / Time Sulfa (Sulfonamide Allergy UNKNOWN Verified 10/22/17 13:11 Antibiotics) morphine AdvReac Intermediate Verified 10/22/17 13:11 Home Medications: Ambulatory Orders Omeprazole 40 mg PO DAILY 12/31/16 Asthma: Yes COPD: No GI Disorders: Yes (GERD) Psychiatric Problems: Yes (anxiety) - Reproductive History Polycystic Ovaries: Yes - Immunization History Immunization Up to Date: No - Suicide/Smoking/Psychosocial Hx Smoking Status: Yes Smoking History: Current every day smoker Have you smoked in the past 12 months: Yes Number of Cigarettes Smoked Daily: 10 Information on smoking cessation initiated: Yes 'Breaking Loose' booklet given: 10/22/17 Hx Alcohol Use: No Drug/Substance Use Hx: Yes Substance Use Type: Marijuana *Physical Exam - Vital Signs Last Vital Signs Temp Pulse Resp BP Pulse Ox 98 F 90 16 120/80 97 08/17/18 20:24 08/17/18 20:24 08/17/18 20:24 08/17/18 20:24 08/17/18 20:24 *DC/Admit/Observation/Transfer Diagnosis at time of Disposition: Viral upper respiratory illness - Discharge Dispostion Disposition: HOME Condition at time of disposition: Stable Decision to Admit order: No - Referrals Referrals: Mateus Ortega [Primary Care Provider] - - Patient Instructions Additional Instructions: Take Tylenol or Motrin as needed for pain or fevers Stay well-hydrated get plenty of rest Your symptoms are consistent with a viral infection which will run its course without need for any antibiotics. Return to the emergency department immediately with ANY new, persistent or worsening symptoms. Continue any medications as previously prescribed by your physician. You should follow up with your primary doctor as soon as possible regarding today's emergency department visit. . Please make sure your doctor reviews the results of your emergency evaluation. Thank you for coming to the Emergency Department today for your care. It was a pleasure to see you today. Please note that your evaluation is INCOMPLETE until you follow-up with your doctor. - Post Discharge Activity
== END 2018-08-17 20:51 | disposition home or self-care (01) ==
LOC: FER 20:20
DX: J06.9 Acute upper respiratory infection, unspecified (principal); B97.89 Other viral agents as the cause of diseases classified elsewhere; J45.909 Unspecified asthma, uncomplicated; K21.9 Gastro-esophageal reflux disease without esophagitis; F41.9 Anxiety disorder, unspecified; Z88.2 Allergy status to sulfonamides; Z88.5 Allergy status to narcotic agent
CPT/HCPCS: 99281-25

== ENCOUNTER 2019-03-03 19:29 | Emergency (ER) | payer OTHER ==
[2019-03-03 19:38] VITALS: BP 105/69; PULSE 95; TEMP 98.3; BMI 54.8
[2019-03-03] MEDS ORDERED: KETOROLAC TROMETHAMINE 60 MG/2 ML VIAL ONE (21:25)
[2019-03-03] MEDS ORDERED: KETOROLAC TROMETHAMINE 60 MG/2 ML VIAL IM ONE (21:28)
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
== END 2019-03-03 21:39 | disposition home or self-care (01) ==
LOC: FER 19:29
PROC: 3E0233Z Introduction of Anti-inflammatory into Muscle, Percutaneous Approach (ICD-10-PCS; principal; 2019-03-03)
DX: S16.1XXA Strain of muscle, fascia and tendon at neck level, initial encounter (principal); S39.012A Strain of muscle, fascia and tendon of lower back, initial encounter; K21.9 Gastro-esophageal reflux disease without esophagitis; F41.9 Anxiety disorder, unspecified; E28.2 Polycystic ovarian syndrome; Z88.2 Allergy status to sulfonamides; Z88.6 Allergy status to analgesic agent; F17.210 Nicotine dependence, cigarettes, uncomplicated; V43.52XA Car driver injured in collision with other type car in traffic accident, initial encounter; Y93.89 Activity, other specified; Y92.410 Unspecified street and highway as the place of occurrence of the external cause
CPT/HCPCS: 72050-TC-FY; 99282-25

== ENCOUNTER 2019-04-07 02:28 | Emergency (ER) | payer OTHER ==
[2019-04-07 02:34] VITALS: BP 139/84; PULSE 113; TEMP 99.2; BMI 53.0
[2019-04-07] MEDS ORDERED: SODIUM CHLORIDE 0.9% 500 ML INFUS.BAG IV ONE (02:39)
[2019-04-07] MEDS ORDERED: KETOROLAC TROMETHAMINE 30 MG/1 ML VIAL IVPUSH ONE (02:39)
[2019-04-07] MEDS ORDERED: CEFTRIAXONE 1 GM in DEXTROSE 5%-WATER - 100 ML IVPB ONE (02:39)
[2019-04-07] MEDS ORDERED: ACETAMINOPHEN 1000 MG/100 ML VIAL (NON FORMULARY) IVPB ONE (02:42)
--- NOTE | 2019-04-07 02:42 | PDOC ---
History of Present Illness - General Chief Complaint: Pain, Acute Stated Complaint: LEFT FLANK PAIN, URINARY FREQUENCY Time Seen by Provider: 04/07/19 02:38 History Source: Patient - History of Present Illness Initial Comments: 04/07/19 02:40 UTI and dysuria Is this a multiple visit Asthma Patient?: No Timing/Duration: 24 hours (strated at 4PM) Past History - Past Medical History Allergies/Adverse Reactions: Allergies Allergy/AdvReac Type Severity Reaction Status Date / Time Sulfa (Sulfonamide Allergy UNKNOWN Verified 04/07/19 02:29 Antibiotics) morphine AdvReac Intermediate Verified 04/07/19 02:29 Home Medications: Ambulatory Orders Omeprazole 40 mg PO DAILY 12/31/16 Cephalexin [Keflex] 500 mg PO TID #21 capsule 04/07/19 Ibuprofen [Motrin -] 600 mg PO TID #21 tablet 04/07/19 Asthma: Yes COPD: No GI Disorders: Yes (GERD) Psychiatric Problems: Yes (anxiety) - Reproductive History Polycystic Ovaries: Yes - Immunization History Immunization Up to Date: No - Psycho Social/Smoking Cessation Hx Smoking Status: Yes Smoking History: Current every day smoker Have you smoked in the past 12 months: Yes Number of Cigarettes Smoked Daily: 10 Information on smoking cessation initiated: No 'Breaking Loose' booklet given: 10/22/17 Hx Alcohol Use: No Drug/Substance Use Hx: Yes (WEED TWICE A WEEK) Substance Use Type: Marijuana Review of Systems - Review of Systems Constitutional: Yes: Chills. No: Symptoms Reported, See HPI, Diaphoresis, Fever , Loss of Appetite, Malaise, Night Sweats, Weakness, Weight Stable, Unintentional Wgt. Loss, Unexplained wgt Loss, Other HEENTM: No: Symptoms Reported, See HPI, Eye Pain, Blurred Vision, Tearing, Recent change in vision, Double Vision, Cataracts, Ear Pain, Ocular Prothesis, Ear Discharge, Nose Pain, Nose Congestion, Tinnitus, Nose Bleeding, Hearing Loss , Throat Pain, Throat Swelling, Mouth Pain, Dental Problems, Difficulty Swallowing, Mouth Swelling, Other Respiratory: No: Symptoms reported, See HPI, Cough, Orthopnea, Shortness of Breath, SOB with Exertion, SOB at Rest, Stridor, Wheezing, Productive cough, Hemoptysis, Other Cardiac (ROS): No: Symptoms Reported, See HPI, Chest Pain, Edema, Irregular Heart Rate, Lightheadedness, Palpitations, Syncope, Chest Tightness, Other ABD/GI: No: Symptoms Reported, See HPI, Abdominal Distended, Abd. Pain w/ defecation, Blood Streaked Bowels, Constipated, Diarrhea, Difficulty Swallowing , Nausea, Poor Appetite, Poor Fluid Intake, Rectal Bleeding, Vomiting, Indigestion, Abdominal cramping, Tarry Stools, Other : Yes: Burning, Frequency, Pain. No: Symptoms Reported, See HPI, Dysuria, Discharge, Flank Pain, Hematuria, Incontinence, Urgency, Testicular Mass, Testicular Swelling, Lesions, Testicular Pain, Other Musculoskeletal: No: Symptoms Reported, See HPI, Back Pain, Gout, Joint Pain, Joint Swelling, Muscle Pain, Muscle Weakness, Neck Pain, Joint Stiffness, Other Integumentary: No: Symptoms Reported, See HPI, Bruising, Change in Color, Change in Hair/Nails, Dryness, Erythema, Flushing, Lesions, Lumps, Pallor, Pruritus, Rash, Sweating, Other Neurological: No: Symptoms reported, See HPI, Headache, Numbness, Paresthesia, Pre-Existing Deficit, Seizure, Tingling, Tremors, Weakness, Unsteady Gait, Ataxia, Dizziness, Other Psychiatric: No: Anxiety, Depression, Frequent Crying, Stressors, Sleep Pattern Change, Emotional Problems, Mood Swings, Change in Appetite, Other Endocrine: No: Symptoms Reported, See HPI, Excessive Sweating, Flushing, Intolerance to Cold, Intolerance to Heat, Increased Hunger, Increased Thirst, Increased Urine, Unexplained Weight Gain, Unexplained Weight Loss, Change in Weight, Other Hematologic/Lymphatic: No: Symptoms Reported, See HPI, Anemia, Blood Clots, Easy Bleeding, Easy Bruising, Bleeding Diathesis, Lymph Node Abnormalities, Swollen Glands, Other *Physical Exam - Vital Signs Last Vital Signs Temp Pulse Resp BP Pulse Ox 99.2 F 113 H 18 139/84 95 04/07/19 02:31 04/07/19 02:31 04/07/19 02:31 04/07/19 02:31 04/07/19 02:31 - Physical Exam General Appearance: Yes: Nourished, Appropriately Dressed HEENT: positive: EOMI, Normal ENT Inspection, Normal Voice, Symmetrical, TMs Normal, Pharynx Normal Neck: positive: Trachea midline, Supple Respiratory/Chest: positive: Lungs Clear, Normal Breath Sounds. negative: Accessory Muscle Use Cardiovascular: positive: Regular Rhythm, Regular Rate, S1, S2 Gastrointestinal/Abdominal: positive: Soft, Other (obese). negative: Flat ED Treatment Course - LABORATORY CBC & Chemistry Diagram: 04/07/19 02:45 04/07/19 02:45 Medical Decision Making - Medical Decision Making 04/07/19 02:53 Pt comes with dysuria and side pain since 4PM. Her mom has a hx of polycystic kidney disease as well as kidney stones. Pt is a smoker but she has no PMHx of kidney problems or kidney stones. She has only asthma and she is obese. 04/07/19 02:54 UPREG test point of care negative. Pt will have spiral CT scan to r/o stone Basic labs and she will be treated with ofirmev, rocephin, saline and toradol 04/07/19 04:23 Patient Name: TAMIKO MULLINS THIS IS A PRELIMINARY REPORT FROM [facility] DATE OF SERVICE: 2019-04-07 03:38:54 IMAGES: [id number] EXAM: CT ABDOMEN WITHOUT CONTRAST AND CT PELVIS WITHOUT CONTRAST HISTORY: 34-Year-Old Female Left-Sided Flank Pain Assess For Stone. COMPARISON: None. FINDINGS: Lack of intravenous contrast limits this exam. Lack of oral contrast limits this exam. Mild hepatomegaly and steatosis. Mild nonspecific splenomegaly. Moderate gallbladder distention with nonspecific dependent density in the gallbladder neck may be due to gallbladder sludge. Left kidney 0.8 cm nonspecific hyperdensity on axial image 54 and coronal image 54 most likely due to a complex proteinaceous cyst and other renal lesions cannot be excluded. Noncontrast evaluation of the pancreas adrenal glands and right kidneys appear unremarkable. No hydronephrosis. Small hiatal hernia. Noncontrast evaluation stomach and small bowel appear unremarkable. Appendix is not identified. Moderate amount of gas and stool in the colon. Mild diverticulosis without diverticulitis. Uterus and bladder appear unremarkable. No free air. No free fluid. No abscess. Mild degenerative disc disease. Subcutaneous tissues incompletely included within the [id number]. IMPRESSION: Mild hepatomegaly and steatosis. Mild nonspecific splenomegaly. Left kidney 0.8 cm nonspecific hyperdensity most likely due to a complex proteinaceous cyst and other renal lesions cannot be excluded. If clinically indicated follow-up outpatient MRI Kidneys may be needed. Moderate gallbladder distention with nonspecific dependent density in the gallbladder neck may be due to gallbladder sludge. Small hiatal hernia. Mild diverticulosis without diverticulitis. This CT exam was performed using one or more of the following dose reduction techniques: automated exposure control, adjustment of the mA and/or kV according to patient size, use of iterative reconstruction technique. Discharge - Discharge Information Problems reviewed: Yes Clinical Impression/Diagnosis: Cystitis, Fatty liver, Hiatal hernia, Cyst of right kidney, Gallbladder sludge Condition: Stable Disposition: HOME - Admission No - Additional Discharge Information Prescriptions: Cephalexin [Keflex] 500 mg PO TID #21 capsule Ibuprofen [Motrin -] 600 mg PO TID #21 tablet - Follow up/Referral - Patient Discharge Instructions Patient Printed Discharge Instructions: Eating a Diet Rich in Fruits and Vegetables, Hiatal Hernia, Acute Cystitis, Nonalcoholic Fatty Liver Disease - Post Discharge Activity Work/Back to School Note: Back to Work
[2019-04-07] MEDS ORDERED: cefTRIAXone SODIUM 1 GM VIAL ONE (02:49)
[2019-04-07] MEDS ORDERED: KETOROLAC TROMETHAMINE 30 MG/1 ML VIAL ONE (03:03)
[2019-04-07] MEDS ORDERED: ACETAMINOPHEN INJECTION 100 ML IVPB ONE (03:03)
[2019-04-07 03:16] LABS: BASO % 0.8 % (0-2.0); EOS % 3.3 % (0-4.5); EPI CELLS 2.1 /HPF (0-5/HPF); HEMATOCRIT 41.2 % (32.4-45.2); HEMOGLOBIN 13.9 GM/dL (10.7-15.3); HYALINE CASTS 2 /lpf (0-8); LYMPH % 16.2 % (8-40); MCH 28.8 pg (25.7-33.7); MCHC 33.7 g/dl (32.0-36.0); MEAN CELL VOLUME 85.3 fl (80-96); MONO % 5.9 % (3.8-10.2); NEUT % 73.8 % (42.8-82.8); PLATELET COUNT 283 K/MM3 (134-434); RBC 4.83 M/mm3 (3.60-5.2); RDW 13.6 % (11.6-15.6); URINE APPEARANCE CLEAR; URINE BACTERIA 3957.1 /hpf (NEGATIVE); URINE BILIRUBIN NEGATIVE (NEGATIVE); URINE COLOR YELLOW; URINE GLUCOSE (UA) NEGATIVE (NEGATIVE); URINE KETONE NEGATIVE (NEGATIVE); URINE LEUK ESTERASE TRACE (NEGATIVE); URINE NITRITE NEGATIVE (NEGATIVE); URINE PROTEIN NEGATIVE (NEGATIVE); URINE RBC 3 /hpf (0-4); URINE UROBILINOGEN 0.2 mg/dL (0.2-1.0); URINE WBC 12 /hpf (0-5); WHITE BLOOD COUNT 10.5 K/mm3 (4.0-10.0)
[2019-04-07 03:37] LABS: ALBUMIN 3.5 g/dl (3.4-5.0); BILIRUBIN,TOTAL 0.4 mg/dL (0.2-1); CALCIUM 8.9 mg/dL (8.5-10.1); CREATININE 0.9 mg/dL (0.55-1.3); POTASSIUM 3.8 mmol/L (3.5-5.1); TOT PROT 7.2 g/dl (6.4-8.2)
== END 2019-04-07 04:22 | disposition home or self-care (01) ==
LOC: FER 02:28
PROC: 3E033NZ Introduction of Analgesics, Hypnotics, Sedatives into Peripheral Vein, Percutaneous Approach (ICD-10-PCS; principal; 2019-04-07)
PROC: 3E03329 Introduction of Other Anti-infective into Peripheral Vein, Percutaneous Approach (ICD-10-PCS; 2019-04-07)
PROC: 3E0333Z Introduction of Anti-inflammatory into Peripheral Vein, Percutaneous Approach (ICD-10-PCS; 2019-04-07)
DX: N30.90 Cystitis, unspecified without hematuria (principal); N28.1 Cyst of kidney, acquired; K46.9 Unspecified abdominal hernia without obstruction or gangrene; Z88.2 Allergy status to sulfonamides; Z88.6 Allergy status to analgesic agent
CPT/HCPCS: 36415; 74176-TC; 80053; 81003; 81025; 85025; 87086; 87186; 99282-25; J0131